=== PATIENT | male | born 1955 | race Caucasian/White ===

== ENCOUNTER 2018-01-31 18:40 | Inpatient (IN) | payer OTHER, BC ==
[2018-01-31] MEDS: SOD CHLORIDE 0.9% 1,000 ML IV (20:47)
[2018-01-31] MEDS: ONDANSETRON 4 MG INJ IV (20:47)
[2018-01-31] MEDS: morphine 4 MG/ML VIAL IV (20:47)
[2018-01-31 20:54] LABS: ADD MAN DIFF? NO
[2018-01-31 20:57] LABS: BASOPHILS % 0.3 % (0.0-2.0); EOSINOPHILS # 0.2 10^3/ul (0.0-0.5); EOSINOPHILS % 1.2 % (0.0-7.0); HEMATOCRIT 40.4 % (42.0-52.0); HEMOGLOBIN 12.6 g/dl (14.0-18.0); LYMPHOCYTES # 3.2 10^3/ul (0.8-2.9); LYMPHOCYTES % 24.7 % (15.0-51.0); MEAN CORPUSCULAR HEMOGLOBIN 25.7 pg (29.0-33.0); MEAN CORPUSCULAR HGB CONC 31.2 g/dl (32.0-37.0); MEAN CORPUSCULAR VOLUME 82.3 fl (82.0-101.0); MEAN PLATELET VOLUME 11.1 fl (7.4-10.4); MONOCYTES % 7.5 % (0.0-11.0); NEUTROPHIL # 8.5 10^3/ul (1.6-7.5); NEUTROPHILS % 65.8 % (39.0-77.0); PLATELET COUNT 254 10^3/UL (140-415); RED BLOOD COUNT 4.91 10^6/ul (4.70-6.10); RED CELL DISTRIBUTION WIDTH 14.7 % (11.5-14.5)
[2018-01-31 20:57] LABS: WHITE BLOOD COUNT 12.9 10^3/ul (4.8-10.8)
[2018-01-31 21:02] LABS: ADD UMIC NO; UR ASCORBIC ACID NEGATIVE (NEGATIVE); UR BILIRUBIN (Dip) NEGATIVE (NEGATIVE); UR BLOOD (Dip) NEGATIVE (NEGATIVE); UR CLARITY CLEAR (CLEAR); UR COLOR COLORLESS (YELLOW); UR GLUCOSE (Dip) NEGATIVE (NEGATIVE); UR KETONES (Dip) NEGATIVE (NEGATIVE); UR LEUKOCYTE ESTERASE (Dip) NEGATIVE Leu/ul (NEGATIVE); UR NITRITE (Dip) NEGATIVE (NEGATIVE); UR SPECIFIC GRAVITY (Dip) 1.005 (1.003-1.030); UR TOTAL PROTEIN (Dip) NEGATIVE (NEGATIVE); UR UROBILINOGEN (Dip) NEGATIVE (NEGATIVE)
[2018-01-31 21:13] LABS: ALANINE AMINOTRANSFERASE 37 IU/L (13-69); ALBUMIN 4.2 g/dl (3.3-4.9); ALBUMIN/GLOBULIN RATIO 1.23; ALKALINE PHOSPHATASE 97 IU/L (42-121); ANION GAP 17 (8-16); ASPARTATE AMINO TRANSFERASE 27 IU/L (15-46); BILIRUBIN,INDIRECT 0.3 mg/dl (0-1.1); BILIRUBIN,TOTAL 0.3 mg/dl (0.2-1.3); BLOOD UREA NITROGEN 27 mg/dl (7-20); CALCIUM 9.4 mg/dl (8.4-10.2); CARBON DIOXIDE 24 mmol/L (21-31); CHLORIDE 104 mmol/L (97-110); CREATININE 1.43 mg/dl (0.61-1.24); GLUCOSE 163 mg/dl (70-220); LIPASE 94 U/L (23-300); SODIUM 140 mmol/L (135-144); TOTAL PROTEIN 7.6 g/dl (6.1-8.1)
[2018-01-31 21:17] LABS: POTASSIUM 5.1 mmol/L (3.5-5.1)
[2018-01-31] MEDS: AMPICILLIN/SULB 3 GM/NS (PMX) 100 ML IVPB (22:38)
[2018-01-31] MEDS ORDERED: ACETAMINOPHEN 325 MG TAB PO ×2 (23:00→23:30)
[2018-01-31] MEDS ORDERED: ONDANSETRON 4 MG INJ IV ×2 (23:00→23:30)
[2018-01-31] MEDS ORDERED: NACL 0.9% 3 ML SYG IV (23:30)
[2018-01-31] MEDS ORDERED: BISACODYL (EC) 5 MG TAB PO (23:30)
[2018-01-31] MEDS ORDERED: DOCUSATE SODIUM 100 MG CAP PO (23:30)
[2018-02-01] MEDS ORDERED: ALBUTEROL HFA 8 GM INHALER INH (00:30)
[2018-02-01] MEDS: INSULIN ASPART [NOVOLOG] 3 ML PEN SC ×6 (01:00→21:09)
[2018-02-01] MEDS: SOD CHLORIDE 0.9% 1,000 ML IV (01:03)
[2018-02-01] MEDS: ACCU-CHEK XX ×3 (01:28→01:44)
[2018-02-01] MEDS: GLUCOSE GEL 15 GRAM TUBE PO ×3 (01:41→02:25)
[2018-02-01] MEDS: GLUCOSE GEL 15 GRAM TUBE BUCCAL (01:41)
[2018-02-01] MEDS: DEXTROSE 5%-0.45% NACL 1,000 ML IV ×2 (01:44→14:54)
[2018-02-01] MEDS ORDERED: GLUCOSE GEL 15 GRAM TUBE PO (02:00)
[2018-02-01] MEDS ORDERED: DEXTROSE 50% 50 ML SYRINGE IV ×2 (02:00)
[2018-02-01] MEDS ORDERED: GLUCAGON 1 MG INJ IM (02:00)
[2018-02-01] MEDS: PIPER-TAZO 2.25 GM (PMX) 50 ML IVPB ×4 (02:52→19:48)
[2018-02-01] MEDS: morphine 2 MG INJ IV ×2 (05:07→12:07)
[2018-02-01 05:58] LABS: ADD MAN DIFF? NO
[2018-02-01 06:05] LABS: WHITE BLOOD COUNT 10.9 10^3/ul (4.8-10.8)
[2018-02-01 06:05] LABS: BASOPHILS % 0.3 % (0.0-2.0); EOSINOPHILS # 0.1 10^3/ul (0.0-0.5); EOSINOPHILS % 1.3 % (0.0-7.0); HEMATOCRIT 38.8 % (42.0-52.0); LYMPHOCYTES # 2.6 10^3/ul (0.8-2.9); LYMPHOCYTES % 23.6 % (15.0-51.0); MEAN CORPUSCULAR HEMOGLOBIN 25.2 pg (29.0-33.0); MEAN CORPUSCULAR HGB CONC 30.9 g/dl (32.0-37.0); MEAN CORPUSCULAR VOLUME 81.3 fl (82.0-101.0); MEAN PLATELET VOLUME 11.7 fl (7.4-10.4); MONOCYTES % 9.1 % (0.0-11.0); NEUTROPHIL # 7.1 10^3/ul (1.6-7.5); NEUTROPHILS % 65.3 % (39.0-77.0); PLATELET COUNT 239 10^3/UL (140-415); RED BLOOD COUNT 4.77 10^6/ul (4.70-6.10)
[2018-02-01 06:16] LABS: INR 0.97
[2018-02-01 06:17] LABS: PARTIAL THROMBOPLASTIN TIME 31.9 Sec (25.0-35.0)
[2018-02-01] MEDS ORDERED: LIDOCAINE 2% (SDV) 5 ML INJ (07:00)
[2018-02-01] MEDS ORDERED: ONDANSETRON 4 MG INJ (07:00)
[2018-02-01] MEDS ORDERED: metroNIDAZOLE 500 MG/100 ML NS IVPB (07:00)
[2018-02-01] MEDS ORDERED: CEFAZOLIN 1 GM INJ (07:00)
[2018-02-01 07:44] LABS: ALANINE AMINOTRANSFERASE 39 IU/L (13-69); ALBUMIN 3.8 g/dl (3.3-4.9); ALBUMIN/GLOBULIN RATIO 1.15; ALKALINE PHOSPHATASE 92 IU/L (42-121); ANION GAP 15 (8-16); ASPARTATE AMINO TRANSFERASE 41 IU/L (15-46); BILIRUBIN,INDIRECT 0.3 mg/dl (0-1.1); BILIRUBIN,TOTAL 0.3 mg/dl (0.2-1.3); BLOOD UREA NITROGEN 23 mg/dl (7-20); CALCIUM 9.2 mg/dl (8.4-10.2); CARBON DIOXIDE 25 mmol/L (21-31); CHLORIDE 105 mmol/L (97-110); CHOL/HDL RATIO 3.8 RATIO; CHOLESTEROL 118 mg/dl (100-200); CREATININE 1.34 mg/dl (0.61-1.24); GLUCOSE 185 mg/dl (70-220); HDL CHOLESTEROL 31 mg/dl (30-78); LDL CHOLESTEROL,CALCULATED 51 mg/dl; MAGNESIUM 1.9 mg/dl (1.7-2.5); POTASSIUM 4.9 mmol/L (3.5-5.1); SODIUM 140 mmol/L (135-144); TOTAL PROTEIN 7.1 g/dl (6.1-8.1); TRIGLYCERIDES 179 mg/dl (0-149)
[2018-02-01 07:58] LABS: T3 UPTAKE 36.7 % (23.5-40.5)
[2018-02-01] MEDS: DILTIAZEM (CD) 180 MG CAP PO (08:24)
[2018-02-01 08:32] LABS: HEMOGLOBIN A1C 7.3 % (0-5.9)
[2018-02-01] MEDS ORDERED: ENALAPRIL 20 MG TAB PO (09:00)
[2018-02-01] MEDS ORDERED: NON-FORMULARY/PATIENT OWN MED (Losartan-Hydrochlorothiazide (Losartan-HCTZ) 1 TAB) PO (09:00)
[2018-02-01 10:23] LABS: FREE THYROXINE INDEX (Calc) 2.86 ug/ml (0.65-3.89); T4 (THYROXINE) 7.8 ug/dl (5.5-11.0)
[2018-02-01] MEDS ORDERED: FENTAnyl 50 MCG/ML VIAL (16:37)
[2018-02-01] MEDS ORDERED: MIDAZOLAM 1 MG/ML 2 ML INJ (16:37)
[2018-02-01] MEDS ORDERED: ROCURONIUM 50 MG INJ (16:38)
[2018-02-01] MEDS ORDERED: SUCCINYLCHOLINE CHLORIDE 100 MG/5 ML SYG IV (16:38)
[2018-02-01] MEDS ORDERED: METOCLOPRAMIDE 10 MG INJ (16:47)
[2018-02-01] MEDS ORDERED: SUGAMMADEX SODIUM 200 MG/2 ML VIAL IV ×2 (16:48→17:58)
[2018-02-01] MEDS: BUPIVACAINE 0.25% (MPF) 30 ML INJ (17:06)
[2018-02-01] MEDS ORDERED: ACETAMINOPHEN 1000MG/100ML IV 100 ML (17:20)
[2018-02-01] MEDS ORDERED: hydrALAzine 20 MG INJ (17:29)
[2018-02-01] MEDS ORDERED: ROPIVACAINE 0.5 % 30 ML VIAL (17:32)
[2018-02-01] MEDS ORDERED: morphine 10 MG INJ IM (18:00)
[2018-02-01] MEDS ORDERED: morphine 2 MG INJ IV (18:00)
[2018-02-01] MEDS ORDERED: ONDANSETRON 4 MG INJ IV (18:00)
[2018-02-01] MEDS ORDERED: OXYCODONE/ACETAMINOPHEN (5/325) TAB PO (18:00)
[2018-02-01] MEDS: HYDROmorphONE 1 MG/5 ML IV SYRINGE IV (18:26)
[2018-02-01] MEDS: LABETALOL HCL 20MG INJ IV (18:26)
[2018-02-01] MEDS: ONDANSETRON 4 MG INJ IV (18:26)
[2018-02-01] MEDS ORDERED: MEPERIDINE 25 MG INJ IV (18:30)
[2018-02-01] MEDS ORDERED: HYDROmorphONE 1 MG/5 ML IV SYRINGE IV (18:30)
[2018-02-01] MEDS ORDERED: FENTAnyl 50 MCG/ML VIAL IV ×2 (18:30)
[2018-02-01] MEDS ORDERED: KETOROLAC 30 MG INJ IV (18:30)
[2018-02-01] MEDS ORDERED: DIPHENHYDRAMINE 50 MG INJ IV (18:30)
[2018-02-01] MEDS ORDERED: hydrALAzine 20 MG INJ IV (18:30)
[2018-02-01] MEDS ORDERED: IPRATROPIUM (NEB) 0.5 MG/2.5 ML AMP HHN (18:30)
[2018-02-01] MEDS: morphine LIQ (10 MG/5 ML) CUP PO (23:37)
[2018-02-02] MEDS: PIPER-TAZO 2.25 GM (PMX) 50 ML IVPB ×4 (00:30→18:17)
[2018-02-02] MEDS: INSULIN ASPART [NOVOLOG] 3 ML PEN SC ×6 (00:58→21:16)
[2018-02-02] MEDS: ACCU-CHEK XX (00:59)
[2018-02-02 05:22] LABS: ADD MAN DIFF? NO
[2018-02-02 05:25] LABS: BASOPHILS % 0.3 % (0.0-2.0); EOSINOPHILS % 0.1 % (0.0-7.0); HEMATOCRIT 39.5 % (42.0-52.0); HEMOGLOBIN 12.3 g/dl (14.0-18.0); LYMPHOCYTES # 1.9 10^3/ul (0.8-2.9); LYMPHOCYTES % 18.2 % (15.0-51.0); MEAN CORPUSCULAR HEMOGLOBIN 25.5 pg (29.0-33.0); MEAN CORPUSCULAR HGB CONC 31.1 g/dl (32.0-37.0); MEAN CORPUSCULAR VOLUME 81.8 fl (82.0-101.0); MEAN PLATELET VOLUME 11.3 fl (7.4-10.4); MONOCYTE # 0.8 10^3/ul (0.3-0.9); MONOCYTES % 7.9 % (0.0-11.0); NEUTROPHIL # 7.4 10^3/ul (1.6-7.5); NEUTROPHILS % 72.9 % (39.0-77.0); PLATELET COUNT 268 10^3/UL (140-415); RED BLOOD COUNT 4.83 10^6/ul (4.70-6.10); RED CELL DISTRIBUTION WIDTH 14.9 % (11.5-14.5)
[2018-02-02 05:25] LABS: WHITE BLOOD COUNT 10.2 10^3/ul (4.8-10.8)
[2018-02-02 05:49] LABS: ALANINE AMINOTRANSFERASE 30 IU/L (13-69); ALBUMIN 3.9 g/dl (3.3-4.9); ALBUMIN/GLOBULIN RATIO 1.18; ALKALINE PHOSPHATASE 88 IU/L (42-121); ANION GAP 15 (8-16); ASPARTATE AMINO TRANSFERASE 23 IU/L (15-46); BILIRUBIN,INDIRECT 0.2 mg/dl (0-1.1); BILIRUBIN,TOTAL 0.2 mg/dl (0.2-1.3); BLOOD UREA NITROGEN 16 mg/dl (7-20); CALCIUM 8.8 mg/dl (8.4-10.2); CARBON DIOXIDE 23 mmol/L (21-31); CHLORIDE 107 mmol/L (97-110); GLUCOSE 203 mg/dl (70-220); POTASSIUM 4.9 mmol/L (3.5-5.1); SODIUM 140 mmol/L (135-144); TOTAL PROTEIN 7.2 g/dl (6.1-8.1)
[2018-02-02 06:46] LABS: MAGNESIUM 1.7 mg/dl (1.7-2.5)
[2018-02-02 06:47] LABS: PHOSPHORUS 4.2 mg/dl (2.5-4.9)
[2018-02-02] MEDS: morphine LIQ (10 MG/5 ML) CUP PO (07:49)
[2018-02-02] MEDS: DILTIAZEM (CD) 180 MG CAP PO (08:22)
[2018-02-02] MEDS ORDERED: hydrALAzine 20 MG INJ IV (12:30)
[2018-02-02] MEDS: HYDROCHLOROTHIAZIDE 25 MG TAB PO (14:21)
[2018-02-02] MEDS: ATENOLOL 50 MG TAB PO (14:22)
[2018-02-02] MEDS: LOSARTAN 50 MG TAB PO (14:22)
[2018-02-02] MEDS: OXYCODONE/ACETAMINOPHEN (5/325) TAB PO (16:56)
[2018-02-02] MEDS: metFORMIN 500 MG TAB PO (18:17)
[2018-02-02] MEDS ORDERED: FISH OIL 1,000 MG CAP PO (21:00)
[2018-02-02] MEDS: FISH OIL 1,000 MG CAP PO (21:10)
[2018-02-02] MEDS: ATORVASTATIN 40 MG TAB PO (21:10)
[2018-02-02] MEDS: INSULIN GLARGINE [LANTus] (100 UNITS/ML) SYG SC (21:13)
[2018-02-02] MEDS: ENALAPRIL 20 MG TAB PO (21:19)
[2018-02-03] MEDS: PIPER-TAZO 2.25 GM (PMX) 50 ML IVPB ×3 (00:10→12:25)
[2018-02-03] MEDS: ACCU-CHEK XX (02:00)
[2018-02-03 05:18] LABS: ADD MAN DIFF? NO
[2018-02-03 05:21] LABS: BASOPHILS % 0.3 % (0.0-2.0); EOSINOPHILS # 0.3 10^3/ul (0.0-0.5); EOSINOPHILS % 2.8 % (0.0-7.0); HEMATOCRIT 37.3 % (42.0-52.0); HEMOGLOBIN 11.6 g/dl (14.0-18.0); LYMPHOCYTES % 26.6 % (15.0-51.0); MEAN CORPUSCULAR HEMOGLOBIN 25.4 pg (29.0-33.0); MEAN CORPUSCULAR HGB CONC 31.1 g/dl (32.0-37.0); MEAN CORPUSCULAR VOLUME 81.8 fl (82.0-101.0); MEAN PLATELET VOLUME 11.3 fl (7.4-10.4); MONOCYTES % 9.1 % (0.0-11.0); NEUTROPHIL # 6.9 10^3/ul (1.6-7.5); NEUTROPHILS % 60.9 % (39.0-77.0); PLATELET COUNT 256 10^3/UL (140-415); RED BLOOD COUNT 4.56 10^6/ul (4.70-6.10)
[2018-02-03 05:21] LABS: WHITE BLOOD COUNT 11.3 10^3/ul (4.8-10.8)
[2018-02-03 05:38] LABS: ANION GAP 12 (8-16); BLOOD UREA NITROGEN 23 mg/dl (7-20); CALCIUM 9.7 mg/dl (8.4-10.2); CARBON DIOXIDE 26 mmol/L (21-31); CHLORIDE 105 mmol/L (97-110); CREATININE 1.33 mg/dl (0.61-1.24); GLUCOSE 212 mg/dl (70-220); MAGNESIUM 1.6 mg/dl (1.7-2.5); POTASSIUM 4.7 mmol/L (3.5-5.1); SODIUM 138 mmol/L (135-144)
[2018-02-03] MEDS: metFORMIN 500 MG TAB PO (08:05)
[2018-02-03] MEDS: FISH OIL 1,000 MG CAP PO (08:05)
[2018-02-03] MEDS: ATENOLOL 50 MG TAB PO (08:06)
[2018-02-03] MEDS: ENALAPRIL 20 MG TAB PO (08:06)
[2018-02-03] MEDS: LOSARTAN 50 MG TAB PO (08:06)
[2018-02-03] MEDS: HYDROCHLOROTHIAZIDE 25 MG TAB PO (08:06)
[2018-02-03] MEDS: INSULIN ASPART [NOVOLOG] 3 ML PEN SC ×2 (08:12→12:46)
[2018-02-03] MEDS: morphine LIQ (10 MG/5 ML) CUP PO (12:25)
[2018-02-03] MEDS: DILTIAZEM (CD) 180 MG CAP PO (12:26)
== END 2018-02-03 17:00 | disposition home or self-care (01) | DRG 342 ==
LOC: MS1 22:45 → E/R 18:40
PROC: 0DTJ4ZZ Resection of Appendix, Percutaneous Endoscopic Approach (ICD-10-PCS; principal; 2018-02-01 09:30)
DX: K35.89 Other acute appendicitis (principal); N17.9 Acute kidney failure, unspecified; E78.5 Hyperlipidemia, unspecified; J44.9 Chronic obstructive pulmonary disease, unspecified; D50.9 Iron deficiency anemia, unspecified; E66.9 Obesity, unspecified; E11.22 Type 2 diabetes mellitus with diabetic chronic kidney disease; I12.9 Hypertensive chronic kidney disease with stage 1 through stage 4 chronic kidney disease, or unspecified chronic kidney disease; N18.9 Chronic kidney disease, unspecified; Z79.4 Long term (current) use of insulin; Z90.49 Acquired absence of other specified parts of digestive tract
CPT/HCPCS: 36415; 74176; 80048; 80053; 80061; 81003; 82962; 83036; 83690; 83735; 84100; 84436; 84443; 84479; 85025; 85610; 85730; 88304; 96374; 96375; 99285-25